=== PATIENT | male | born 1960 | race Caucasian/White ===

== ENCOUNTER 2017-03-20 16:32 | Emergency (ER) | payer OTHER ==
--- NOTE | 2017-03-20 18:10 | ER Document Report ---
ED General - General Chief Complaint: Toe Injury Stated Complaint: TOE PAIN Time Seen by Provider: 03/20/17 18:00 Notes: This is a 56-year-old male with a history of hypertension and seizure disorder who presents with toe pain. He states that he has had this toe problem for the past 3-4 months. Problem initially began with a toe injury in which he lifted the toenail from the nail bed. Since that time he has had pain and swelling and redness. He states that he has been too busy with work and that is why he has not been evaluated until now. No new symptoms today and he states that the appearance of the toe has been stable for the past 2 or 3 months. He specifically denies any fevers chills or systemic symptoms. TRAVEL OUTSIDE OF THE [place] IN LAST 30 DAYS: No - Related Data Allergies/Adverse Reactions: No Known Allergies Allergy (Verified 03/20/17 16:35) Past Medical History - Social History Smoking Status: Never Smoker Chew tobacco use (# tins/day): No Frequency of alcohol use: None Drug Abuse: None Family History: Reviewed & Not Pertinent Patient has suicidal ideation: No Patient has homicidal ideation: No - Past Medical History Cardiac Medical History: Reports: Hx Hypertension Denies: Hx Heart Attack Pulmonary Medical History: Denies: Hx Asthma Neurological Medical History: Reports: Hx Seizures - LAST ONE 15 YEARS AGO D/T HEAD INJURY [id number]?. Denies: Hx Cerebrovascular Accident Renal/ Medical History: Denies: Hx Peritoneal Dialysis GI Medical History: Denies: Hx Hepatitis, Hx Hiatal Hernia, Hx Ulcer Infectious Medical History: Denies: Hx Hepatitis Surgical Hx: Negative Past Surgical History: Reports: Hx Tonsillectomy. Denies: Hx Open Heart Surgery , Hx Pacemaker - Immunizations Hx Diphtheria, Pertussis, Tetanus Vaccination: Yes Review of Systems - Review of Systems Constitutional: No symptoms reported. denies: Chills, Fever EENT: No symptoms reported Cardiovascular: No symptoms reported Respiratory: No symptoms reported Gastrointestinal: No symptoms reported Musculoskeletal: See HPI Skin: See HPI Hematologic/Lymphatic: No symptoms reported Neurological/Psychological: No symptoms reported Physical Exam - Vital signs Vitals: Temp Pulse Resp BP Pulse Ox 97.7 F 74 18 160/83 H 96 03/20/17 16:35 03/20/17 16:35 03/20/17 16:35 03/20/17 16:35 03/20/17 16:35 - General General appearance: Appears well In distress: None - HEENT Head: Normocephalic, Atraumatic Eyes: Normal - Respiratory Respiratory status: No respiratory distress Breath sounds: Normal. No: Rales, Rhonchi, Wheezing - Cardiovascular Rhythm: Regular Heart sounds: Normal auscultation, S1 appreciated, S2 appreciated - Extremities Notes: 3rd toe R foot: diffuse erythema to toe with mild swelling. Majority of toenail has avulsed and there is some granulation tissue present. Sensation intact. No erthema extending past toe onto foot. Foot is warm with distal pulses intact. Course - Re-evaluation Re-evalutation: 03/20/17 21:03 Pt with obvious cellulitis to toe, but patient states this appearance has been stable for the past month or more. Will trial outpatient antibiotics and follow up with PCP and podiatry. Strict return precautions discussed, he feels well and is very comfortable with this plan. - Vital Signs Vital signs: Temp Pulse Resp BP Pulse Ox 97.7 F 78 18 141/93 H 96 03/20/17 16:35 03/20/17 18:25 03/20/17 18:25 03/20/17 18:25 03/20/17 18:25 Discharge - Discharge Clinical Impression: Cellulitis of toe of right foot Condition: Stable Disposition: HOME, SELF-CARE Additional Instructions: CELLULITIS: You have an infection of your skin and underlying soft tissues called cellulitis. This is due to bacteria, which can enter through any break in the skin, or even through an irritated hair follicle. Untreated, cellulitis will usually worsen. Antibiotics are required. Usually, warm packs or warm soaks, and elevation of the infected area are recommended. You should start getting better within 24 to 36 hours. Most infections respond quickly to the right medication. Follow-up care is important, however, to check for abscess (boil) formation, unsuspected foreign body, or resistant infection. If you develop fever, chills, or if the area of infection is becoming rapidly more swollen or painful, call the doctor at once. ANTIBIOTIC THERAPY: You have been given an antibiotic prescription. It's important that you take all the medication, unless instructed otherwise by your physician. Failure to complete the entire course can result in relapse of your condition. Common side effects of antibiotics include nausea, intestinal cramping, or diarrhea. Women may develop vaginal yeast infections, and babies can get yeast (thrush) in the mouth following the use of antibiotics. Contact your physician if you develop significant side effects from this medication. Allergy to this antibiotic can result in hives, wheezing, faintness, or itching. If symptoms of allergy occur, stop the medication and call the doctor. CLINDAMYCIN: You have been given a prescription for the antibiotic clindamycin. It is often prescribed for infections in the mouth, such as dental infections or abscesses, and for skin infections due to MRSA. It's important that you take all the medication, unless instructed otherwise by your physician. Failure to complete the entire course can result in relapse of your condition. Common side effects of antibiotics include nausea, intestinal cramping, or diarrhea. Women may develop vaginal yeast infections, and babies can get yeast (thrush) in the mouth following the use of antibiotics. Contact your physician if you develop significant side effects from this medication. Allergy to this antibiotic can result in hives, wheezing, faintness, or itching. If symptoms of allergy occur, stop the medication and call the doctor. FOLLOW-UP CARE: If you have been referred to a physician for follow-up care, call the physician s office for an appointment as you were instructed or within the next two days. If you experience worsening or a significant change in your symptoms, notify the physician immediately or return to the Emergency Department at any time for re-evaluation. Prescriptions: Clindamycin HCl 300 mg PO Q6H #40 capsule Mupirocin 22 gm TP BID #1 oint..gm. Referrals: FIDEL ATKINS DPM [ACTIVE STAFF] - 03/22/17
[2017-03-20] MEDS ORDERED: IBUPROFEN 800 MG TABLET PO ONE (18:14)
[2017-03-20 18:32] VITALS: BP 141/93
== END 2017-03-20 18:25 | disposition home or self-care (01) ==
LOC: ER 16:32
DX: S91.201A Unspecified open wound of right great toe with damage to nail, initial encounter (principal); L03.031 Cellulitis of right toe; X58.XXXA Exposure to other specified factors, initial encounter; I10 Essential (primary) hypertension
CPT/HCPCS: 99282

== ENCOUNTER 2019-10-30 12:30 | Inpatient (IN) | payer OTHER ==
--- NOTE | 2019-10-30 12:58 | ER Document Report ---
ED Medical Screen (RME) - General Chief Complaint: Shortness Of Breath Stated Complaint: DIFFICULTY BREATHING/WEAKNESS Time Seen by Provider: 10/30/19 12:49 Primary Care Provider: SELINA STEINER MD [Primary Care Provider] - Follow up as needed TRAVEL OUTSIDE OF THE [place] IN LAST 30 DAYS: No - HPI Notes: 10/30/19 12:56 Patient is a 59-year-old male who presents complaining of generalized weakness for the past several days, dizziness today, feeling short of breath during a dizziness episode today, and having URI symptoms for the past 2 and half weeks. Patient is currently on amoxicillin as well as Tessalon for his illness by his family doctor, but does not seem to be improving. He is urinating normally, but does have diarrhea. No fever, but has felt chills/sweats. Currently no dizziness at rest. I have treated and performed a rapid initial assessment of this patient. A comprehensive ED assessment and evaluation of the patient, analysis of test results and completion of medical decision making process will be conducted by additional ED providers. PHYSICAL EXAMINATION: GENERAL: Well-appearing, well-nourished and in no acute distress. A&Ox4. Answers questions appropriately. Heart: RRR Lungs: CTAB Neuro: Cranial nerves grossly intact. - Related Data Allergies/Adverse Reactions: No Known Allergies Allergy (Verified 03/20/17 16:35) Past Medical History - Past Medical History Cardiac Medical History: Reports: Hx Hypertension Denies: Hx Heart Attack Pulmonary Medical History: Denies: Hx Asthma Neurological Medical History: Reports: Hx Seizures - LAST ONE 15 YEARS AGO D/T HEAD INJURY [id number]?. Denies: Hx Cerebrovascular Accident Renal/ Medical History: Denies: Hx Peritoneal Dialysis GI Medical History: Denies: Hx Hepatitis, Hx Hiatal Hernia, Hx Ulcer Infectious Medical History: Denies: Hx Hepatitis Past Surgical History: Reports: Hx Tonsillectomy. Denies: Hx Open Heart Surgery, Hx Pacemaker - Immunizations Hx Diphtheria, Pertussis, Tetanus Vaccination: Yes Physical Exam - Vital signs Vitals: Temp Pulse Resp BP Pulse Ox 97.5 F 70 18 115/87 H 97 10/30/19 12:35 10/30/19 12:35 10/30/19 12:35 10/30/19 12:35 10/30/19 12:35 Course - Vital Signs Vital signs: Temp Pulse Resp BP Pulse Ox 97.5 F 70 18 115/87 H 97 10/30/19 12:35 10/30/19 12:35 10/30/19 12:35 10/30/19 12:35 10/30/19 12:35 Doctor's Discharge - Discharge Referrals: SELINA STEINER MD [Primary Care Provider] - Follow up as needed
[2019-10-30] MEDS ORDERED: DILTIAZEM HCL INJ 25 MG/5 ML VIAL ONE (13:13)
[2019-10-30] MEDS ORDERED: DILTIAZEM HCL INJ 25 MG/5 ML VIAL IV ONE (13:18)
[2019-10-30] MEDS ORDERED: DILTIAZEM HCL/D5W 125 MG/125 ML RTUINJ IV ONE (13:24)
[2019-10-30 13:27] LABS: ABSOLUTE BASOPHILS # (AUTO) 0.1 10^3/uL (0.0-0.2); ABSOLUTE EOSINOPHILS # (AUTO) 0.2 10^3/uL (0.0-0.6); ABSOLUTE LYMPHOCYTES (AUTO) 2.3 10^3/uL (0.5-4.7); ABSOLUTE NEUT (AUTO) 9.5 10^3/uL (1.7-8.2); EOSINOPHILS % (AUTO) 1.2 % (0-6); HEMATOCRIT 46.5 % (37.9-51.0); HEMOGLOBIN 16.5 g/dL (13.5-17.0); LYMPHOCYTES % (AUTO) 17.4 % (13-45); MEAN CORPUSCULAR HEMOGLOBIN 32.1 pg (27.0-33.4); MEAN CORPUSCULAR HGB CONC 35.4 g/dL (32.0-36.0); MEAN CORPUSCULAR VOLUME 91 fl (80-97); MONOCYTES % (AUTO) 7.8 % (3-13); PLATELET COUNT 399 10^3/uL (150-450); RED BLOOD COUNT 5.13 10^6/uL (4.35-5.55); RED CELL DISTRIBUTION WIDTH 12.4 % (11.5-14.0); SEGMENTED NEUTROPHILS % (AUTO) 72.6 % (42-78); TOTAL CELLS COUNTED % (AUTO) 100 %; WHITE BLOOD COUNT 13.1 10^3/uL (4.0-10.5)
[2019-10-30] MEDS: DILTIAZEM HCL/D5W 125 MG/125 ML RTUINJ IV PRN ×2 (13:27→21:48)
--- NOTE | 2019-10-30 13:53 | RADIOLOGY REPORT (SQ) ---
EXAM DESCRIPTION: CHEST SINGLE VIEW COMPLETED DATE/TIME: 10/30/2019 1:41 pm REASON FOR STUDY: SOB, dizziness COMPARISON: None. EXAM PARAMETERS: NUMBER OF VIEWS: One view. TECHNIQUE: Single frontal radiographic view of the chest acquired. RADIATION DOSE: NA LIMITATIONS: None. FINDINGS: LUNGS AND PLEURA: Is ill-defined opacification in the left base laterally. There is sligh t haziness in the right upper lobe laterally. MEDIASTINUM AND HILAR STRUCTURES: No masses. Contour normal. HEART AND VASCULAR STRUCTURES: Heart normal in size. Normal vasculature. BONES: No acute findings. HARDWARE: None in the chest. OTHER: No other significant finding. IMPRESSION: Cannot exclude a limited left lower lobe or right upper lobe pneumonia. TECHNICAL DOCUMENTATION: JOB ID: [id number] [employer]- All Rights Reserved Reading location - IP/workstation name: [email or web address]
[2019-10-30 14:09] LABS: ALBUMIN 3.9 g/dL (3.5-5.0); ALKALINE PHOSPHATASE 109 U/L (38-126); ANION GAP 14 (5-19); ASPARTATE AMINO TRANSFERASE 53 U/L (17-59); BILIRUBIN,DIRECT 0.5 mg/dL (0.0-0.4); BILIRUBIN,TOTAL 0.6 mg/dL (0.2-1.3); BLOOD UREA NITROGEN 15 mg/dL (7-20); CALCIUM 9.5 mg/dL (8.4-10.2); CARBON DIOXIDE 25 mmol/L (22-30); CHLORIDE 101 mmol/L (98-107); GLUCOSE 113 mg/dL (75-110); POTASSIUM 4.4 mmol/L (3.6-5.0); TOTAL PROTEIN 8.2 g/dL (6.3-8.2)
[2019-10-30 14:22] LABS: NT PRO BNP 730 pg/mL (<125)
[2019-10-30 14:25] LABS: TROPONIN I < 0.012 ng/mL
--- NOTE | 2019-10-30 14:25 | ER Document Report ---
ED General - General Chief Complaint: Shortness Of Breath Stated Complaint: DIFFICULTY BREATHING/WEAKNESS Time Seen by Provider: 10/30/19 12:49 Mode of Arrival: Ambulatory Information source: Patient, Relative, Dr. Brush, [facility] Records Notes: Patient is a 59-year-old male with hypertension presents complaining of generalized weakness, shortness of breath for the past several days, dizziness t adonay, feeling short of breath during a dizziness episode today, and having URI symptoms for the past 2 and half weeks. Reports productive cough. Patient is currently on amoxicillin as well as Tessalon for his illness by his family doctor, but does not seem to be improving. He is urinating normally, but does have diarrhea. No fever, but has felt chills/sweats. Currently no dizziness at rest. Patient denies palpitations, chest pain. TRAVEL OUTSIDE OF THE [place] IN LAST 30 DAYS: No - HPI Onset: Other Onset/Duration: Intermittent Quality of pain: No pain Severity: None Pain Level: Denies Associated symptoms: Body/muscle aches, Productive cough, Fever, Shortness of breath, Weakness. denies: Chest pain, Diarrhea, Nausea, Vomiting Exacerbated by: Supine Relieved by: Denies Similar symptoms previously: Yes Recently seen / treated by doctor: Yes - Related Data Allergies/Adverse Reactions: No Known Allergies Allergy (Verified 03/20/17 16:35) Past Medical History - General Information source: Patient, DrMichael Brush, [facility] Records - Social History Smoking Status: Never Smoker Frequency of alcohol use: None Drug Abuse: None Lives with: Family, Spouse/Significant other Family History: Reviewed & Not Pertinent Patient has suicidal ideation: No Patient has homicidal ideation: No - Past Medical History Cardiac Medical History: Reports: Hx Hypertension Denies: Hx Heart Attack Pulmonary Medical History: Denies: Hx Asthma Neurological Medical History: Reports: Hx Seizures - LAST ONE 15 YEARS AGO D/T HEAD INJURY [id number]?. Denies: Hx Cerebrovascular Accident Renal/ Medical History: Denies: Hx Peritoneal Dialysis GI Medical History: Denies: Hx Hepatitis, Hx Hiatal Hernia, Hx Ulcer Infectious Medical History: Denies: Hx Hepatitis Past Surgical History: Reports: Hx Tonsillectomy. Denies: Hx Open Heart Merida rgery, Hx Pacemaker - Immunizations Hx Diphtheria, Pertussis, Tetanus Vaccination: Yes Review of Systems - Review of Systems Notes: REVIEW OF SYSTEMS: CONSTITUTIONAL : + fever, chills, or sweats. + recent illness. Denies weight loss, recent hospitalizations. EENT: Denies visual changes, eye pain. Denies sore throat, oral lesions, difficulty swallowing. CARDIOVASCULAR: Denies chest pain. Denies palpitations. Denies lower extremity edema. RESPIRATORY: + cough. + shortness of breath, wheezing. GASTROINTESTINAL: Denies abdominal pain or distention. Denies nausea, vomiting, or diarrhea. Denies blood in vomitus, stools, or per rectum. Denies black, tarry stools. Denies constipation. GENITOURINARY: Denies difficulty urinating, painful urination, frequency, blood in urine, testicular pain or penile discharge. MUSCULOSKELETAL: Denies back or neck pain or stiffness. Denies joint pain or swelling. SKIN: Denies rash, lesions or sores. HEMATOLOGIC : Denies easy bruising or bleeding. LYMPHATIC: Denies swollen glands. NEUROLOGICAL: Denies confusion or altered mental status. Denies loss of consciousness. Denies dizziness or lightheadedness. Denies headache. Denies weakness or paralysis. Denies problems difficulty with ambulation, slurred speech. Denies sensory loss, numbness, or tingling. Denies seizures. PSYCHIATRIC: Denies anxiety or stress. Denies depression, suicidal ideation, or Physical Exam - Vital signs Vitals: Temp Pulse Resp BP Pulse Ox 97.5 F 70 18 115/87 H 97 10/30/19 12:35 10/30/19 12:35 10/30/19 12:35 10/30/19 12:35 10/30/19 12:35 - Notes Notes: PHYSICAL EXAMINATION: GENERAL: Well-appearing, well-nourished and in no acute distress. HEAD: Atraumatic, normocephalic. EYES: Pupils equal round and reactive to light, extraocular movements intact, sclera anicteric, conjunctiva are normal. ENT: Nares patent, oropharynx clear without exudates. Moist mucous membranes. NECK: Normal range of motion, supple without lymphadenopathy LUNGS: Bilateral rhonchi, no hypoxia, tachypnea, accessory muscle use. HEART: Tachycardic, regular rhythm, no murmurs. ABDOMEN: Soft, nontender, nondistended abdomen. No guarding, no rebound. No masses appreciated. Musculoskeletal: Normal range of motion, no pitting or edema. No cyanosis. NEUROLOGICAL: Cranial nerves grossly intact. Normal speech, normal gait. Normal sensory, motor exams PSYCH: Normal mood, normal affect. SKIN: Warm, Dry, normal turgor, no rashes or lesions noted. Course - Re-evaluation Re-evalutation: Laboratory 10/30/19 10/30/19 10/30/19 13:20 13:20 13:20 WBC 13.1 H RBC 5.13 Hgb 16.5 Hct 46.5 MCV 91 MCH 32.1 MCHC 35.4 RDW 12.4 Plt Count 399 Lymph % (Auto) 17.4 [place] % (Auto) 7.8 Eos % (Auto) 1.2 Baso % (Auto) 1.0 Absolute Neuts (auto) 9.5 H Absolute Lymphs (auto) 2.3 Absolute Monos (auto) 1.0 Absolute Eos (auto) 0.2 Absolute Basos (auto) 0.1 Seg Neutrophils % 72.6 Sodium 140.1 Potassium 4.4 Chloride 101 Carbon Dioxide 25 Anion Gap 14 BUN 15 Creatinine 0.86 Est GFR ( Amer) > 60 Est GFR (MDRD) Non-Af > 60 Glucose 113 H Calcium 9.5 Magnesium 2.1 Total Bilirubin 0.6 Direct Bilirubin 0.5 H Neonat Total Bilirubin Not Reportable Neonat Direct Bilirubin Not Reportable Neonat Indirect Bili Not Reportable AST 53 ALT 103 Alkaline Phosphatase 109 Troponin I < 0.012 NT-Pro-B Natriuret Pep 730 H Total Protein 8.2 Albumin 3.9 Chest X-Ray 10/30/19 12:56 IMPRESSION: Cannot exclude a limited left lower lobe or right upper lobe pneumonia. Temp Pulse Resp BP Pulse Ox 97.5 F 70 18 115/87 H 95 10/30/19 12:35 10/30/19 12:35 10/30/19 12:35 10/30/19 12:35 10/30/19 13:50 10/30/19 14:[address] Crowley the patient's marine erector who states that he does not have a record of the patient having atrial fibrillation. Explained that patient did receive a bolus of Cardizem and is currently maxed out on a Cardizem drip with poor rate control. He advises Lopressor and a stat echocardiogram. Chest x-ray consistent with pneumonia. 10/30/19 15:06 Upon arrival patient EKG showed atrial fibrillation with a heart rate of 188. He did receive 20 mg Cardizem bolus and is now on a Cardizem drip with a heart rate fluctuating between 105 and 120 and a blood pressure of 132/97. 10/30/19 16:48 Front Loader Residential Driver consulted after CTA revealed multiple pulmonary emboli, right heart strain. I did speak with Dr. Crowley requesting that he read the echocardiogram as the water aerobics instructor feels that the patient could be a TPA candidate. 10/30/19 19:04 Dr. Crowley was available to talk to the water aerobics instructor Dr. Hi. They have decided to use weight-based Lovenox for the patient instead of TPA. Patient made aware of CT finding and is agreeable to admission to the ICU. - Vital Signs Vital signs: Temp Pulse Resp BP Pulse Ox 97.8 F 87 22 H 129/80 H 95 10/30/19 17:53 10/30/19 17:53 10/30/19 18:00 10/30/19 17:53 10/30/19 18:00 - Laboratory Result Diagrams: 10/30/19 13:20 10/30/19 13:20 Laboratory results interpreted by me: 10/30/19 10/30/19 10/30/19 13:20 13:20 13:20 WBC 13.1 H Absolute Neuts (auto) 9.5 H D-Dimer Glucose 113 H Direct Bilirubin 0.5 H NT-Pro-B Natriuret Pep 730 H 10/30/19 13:20 WBC Absolute Neuts (auto) D-Dimer 4.82 H Glucose Direct Bilirubin NT-Pro-B Natriuret Pep - Diagnostic Test Radiology reviewed: Image reviewed, Reports reviewed - EKG Interpretation by Me Rate: Tachycardia Rhythm: A.Fib - RVR, heart rate 188 Critical Care Note - Critical Care Note Total time excluding time spent on procedures (mins): 35 - Minutes of critical care time spent in direct contact evaluating and reevaluating the patient, treating symptoms, reviewing labs and studies and speaking with family and consultants excluding any procedures Discharge - Discharge Clinical Impression: New onset atrial fibrillation, Cough, Pulmonary embolism and infarction Dyspnea Qualifiers: Dyspnea type: shortness of breath Qualified Code(s): R06.02 - Shortness of breath Condition: Good Disposition: ADMITTED INPATIENT Admitting Provider: Sussy (Front Loader Residential Driver) Unit Admitted: ICU
[2019-10-30] MEDS ORDERED: CEFTRIAXONE 1 GM/D5W RTU 1 GM/50 ML RTUPB IV ONE (14:27)
[2019-10-30] MEDS ORDERED: DOXYCYCLINE HYCLATE 100 MG TABLET PO ONE (14:27)
[2019-10-30 15:03] LABS: FREE T4 (FREE THYROXINE) 1.26 ng/dL (0.78-2.19)
[2019-10-30] MEDS ORDERED: METOPROLOL TARTRATE PF/INJ 5 MG/5 ML SDV IV ONE (15:12)
[2019-10-30 15:17] LABS: THYROID STIMULATING HORMONE 1.02 uIU/mL (0.47-4.68)
[2019-10-30 15:21] LABS: FREE T3 3.16 pg/mL (2.77-5.27)
--- NOTE | 2019-10-30 16:01 | EKG REPORT ---
SEVERITY:- ABNORMAL ECG - ATRIAL FIBRILLATION WITH RAPID V-RATE REPOLARIZATION ABNORMALITY, PROB RATE RELATED : Confirmed by: Miky Nj MD 30-Oct-2019 16:01:07
--- NOTE | 2019-10-30 16:17 | RADIOLOGY REPORT (SQ) ---
EXAM DESCRIPTION: CTA CHEST COMPLETED DATE/TIME: 10/30/2019 3:43 pm REASON FOR STUDY: sob COMPARISON: None. TECHNIQUE: CT scan of the chest performed using helical scanning technique with dynamic intravenous contrast injection. Images reviewed with lung, soft tissue and bone windows. Reconstructed coronal and sagittal MPR images reviewed. Additional 3 dimensional post-processing performed to develop Maximal Intensity Projection images (NM P). All images stored on PACS. All CT scanners at this facility use dose modulation, iterative reconstruction, and/or weight based d osing when appropriate to reduce radiation dose to as low as reasonably achievable (ALARA). [facility]: Dose Right [facility]: CareDose [facility]: Dose Right [facility]: Teradose 4D [facility]: ClauseMatch CONTRAST TYPE AND DOSE: Contrast/concentration: Isovue 350.00 mg/ml; Total Contrast Delivered: 70.0 ml; Total Saline Delivered: 54.7 ml Contrast bolus optimized for the pulmonary arteries. RENAL FUNCTION: Creatinine 0.86 milligrams/deciliter. RADIATION DOSE: CT Rad equipment meets quality standard of care and radiation dose reduction techniq ues were employed. CTDIvol: 19.8 - 28.8 mGy. DLP: 1123 mGy-cm. LIMITATIONS: None. FINDINGS: LUNGS AND PLEURA: Evaluation is limited due to the absence of intravenous contrast. The a reas of patchy consolidation in the right upper lobe (image 44 of series 4) and left upper lobe (imag e 47 of series 4) with air bronchograms are nonspecific. The 12 x 10 mm spiculated nodular opacity i n the medial segment of the right middle lobe (image 73 of series 4) and the subpleural opacities in the right lower lobes and lingula could represent atelectasis. There is no pleural effusion or pneum othorax. AORTA AND GREAT VESSELS: Variant 2 vessel arch. There is no thoracic aortic aneurysm or dissection. HEART: The heart is enlarged. The interventricular septum is flattened and the ratio of the right ve ntricle to the left ventricle is greater than 1:1. There is no reflux of contrast into the IVC or he patic veins. PULMONARY ARTERIES: There are filling defects within the right and left pulmonary arteries and within the segmental branches to the right upper, right middle, right lower, left upper and left lower lobe s. HILAR AND MEDIASTINAL STRUCTURES: No enlarged mediastinal hilar lymph nodes. HARDWARE: None in the chest. UPPER ABDOMEN: There is a cluster of portocaval and wendy hepatis lymph nodes that measure up to 12 m m in short axis diameter. THYROID AND OTHER SOFT TISSUES: No masses or adenopathy. BONES: No acute findings. 3D MIPS: Confirm above findings. OTHER: No other finding. IMPRESSION: 1. Extensive bilateral pulmonary emboli with findings of right ventricular strain. 2. Areas of patchy consolidation in the right upper lobe (image 44 of series 4) and left upper lobe (image 47 of series 4) could represent pulmonary infarcts or multifocal pneumonia. Clinical correlat ion is recommend. COMMENT: Quality ID # [id number]: Final reports with documentation of one or more dose reduction techniques (e.g., Automated exposure control, adjustment of the mA and/or kV according to patient size, use of iterative reconstruction technique) TECHNICAL DOCUMENTATION: JOB ID: [id number] [employer]- All Rights Reserved Reading location - IP/workstation name: [email or web address]
--- NOTE | 2019-10-30 17:09 | XCELERA REPORT ---
[address] [address] Transthoracic Echocardiogram Report Name: MARC CAGE Deloris JR Age: 59 yrs Gender: Male : 1960 Patient Status: Emergency Patient Location: ER Study Date: 10/30/2019 02:53 PM Height: 69 in Weight: 226 lb BSA: 2.2 m2 Procedure: A complete two-dimensional transthoracic echocardiogram was performed (2D, M-mode, spectral and color flow Doppler). The study was technically difficult with many images being suboptimal in quality. Reason For Study: New onset atrial fibrillation Ordering Physician: SHA LAND Performed By: Eneida Melchor Interpretation Summary The left ventricular ejection fraction is within normal limits. The right ventricle is mildly dilated. The right ventricular systolic function is normal. There is borderline right ventricular hypertrophy. There is borderline concentric left ventricular hypertrophy. The left ventricle is grossly normal size. LV diastolic function could not be adequately assessed due to atrial fibrilation. The right atrium is normal in size The left atrial size is normal. There is a trace amount of mitral regurgitation There is no mitral valve stenosis. No aortic regurgitation is present. There is no aortic valve stenosis There is a trace or physiologic amount of tricuspid regurgitation Tricuspid regurgitation jet envelope not well defined to measure RV systolic pressure accurately. The aortic root is not well visualized. IVC not well visualised but does seem small. MMode/2D Measurements & Calculations RVDd: 2.3 cm LVIDd: 3.6 cm FS: 21.9 % Ao root diam: 3.0 cm IVSd: 1.1 cm LVIDs: 2.8 cm EDV(Teich): 54.8 ml Ao root area: 7.0 cm2 LVPWd: 1.2 cm ESV(Teich): 30.1 ml EF(Teich): 45.1 % Doppler Measurements & Calculations MV E max topher: MV dec slope: Ao V2 max: LV V1 max P.2 cm/sec 453.2 cm/sec2 135.6 cm/sec 4.5 mmHg MV dec time: 0.16 sec Ao max P.4 mmHgLV V1 max: 106.2 cm/sec PA V2 max: PI end-d topher: TR max topher: 86.8 cm/sec 147.7 cm/sec 227.2 cm/sec PA max P.0 mmHgPI max topher: TR max P.3 cm/sec 20.9 mmHg PI max P.4 mmHg PI dec slope: 110.1 cm/sec2 Left Ventricle The left ventricle is grossly normal size. There is borderline concentric left ventricular hypertrophy. The left ventricular ejection fraction is within normal limits. LV diastolic function could not be adequately assessed due to atrial fibrilation. Regional wall motion abnormalities cannot be excluded due to limited visualization. Right Ventricle The right ventricle is mildly dilated. There is borderline right ventricular hypertrophy. The right ventricular systolic function is normal. Atria The right atrium is normal in size. The left atrial size is normal. Interarterial septum not well visualized and not well dopplered. Cannot comment on ASD/PFO presence. Mitral Valve The mitral valve is grossly normal. There is no mitral valve stenosis. There is a trace amount of mitral regurgitation. Aortic Valve The aortic valve is not well visualized secondary to technical limitations. There is no aortic valve stenosis. No aortic regurgitation is present. Tricuspid Valve The tricuspid valve is not well visualized, but is grossly normal. There is no tricuspid stenosis. There is a trace or physiologic amount of tricuspid regurgitation. Tricuspid regurgitation jet envelope not well defined to measure RV systolic pressure accurately. Pulmonic Valve The pulmonic valve is not well visualized. Great Vessels The aortic root is not well visualized. The inferior vena cava was not well visualized. but does seem small. Effusions Minimal pericardial effusion. : SHA LAND Shyamal
[2019-10-30] MEDS ORDERED: IPRATROPIUM/ALBUTEROL 0.5-2.5 MG/3 ML AMPUL NEB PRN (17:15)
[2019-10-30] MEDS ORDERED: ENOXAPARIN SODIUM INJ 100 MG/1 ML DISP.SYRIN SUBCUT SCH (17:15)
[2019-10-30] MEDS ORDERED: ACETAMINOPHEN 325 MG TABLET PO PRN (17:15)
[2019-10-30] MEDS ORDERED: NORMAL SALINE 1000 ML 1,000 ML IV PRN (17:15)
[2019-10-30] MEDS ORDERED: OXYCODONE-ACETAMINOPHEN 5-325 MG TABLET PO PRN (17:15)
[2019-10-30] MEDS ORDERED: INFLUENZA QUAD (6MOS+) 2019-20 VAC 0.5 ML SYR IM ONE (17:58)
[2019-10-30] MEDS: ENOXAPARIN SODIUM INJ 100 MG/1 ML DISP.SYRIN SUBCUT SCH (18:25)
--- NOTE | 2019-10-30 18:37 | CRITICAL CARE ADMISSION REPORT ---
HPI Date:: 10/30/19 Time:: 16:00 Reason for ICU Reason:: Multiple PEs and pulmonary infarction. R heart strain and rapid afib. HPI: This patient is a 59 yo man who began having shortness of breath this AM. He was feeling and looking 'bad' according to and he agreed to come to the ED. While there he was noted to be in new atrial fibrillation up to 180. No drop in BP. Treated effectively with cardizem. Now in SR. He was noted to have a d-dimer of 4.8 and a resultant CTA showed multiple PEs and infarctions mostly in both upper lobes. He had an echocardiogram showing a good RV an LV EF with some R heart strain. The decision was made based on his stable clinical status to treat with lovenox and watch overnight in the ICU. Should he become unstable he will get thrombolytics. If he remains stable he will be downgraded in AM. Interestingly he has a spiculated lesion in his lung that is new. He has never smoked. 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 Their smoking status is not known. This will obviously need follow up when more stable. I believe this has been going on for more than today as he says he has been dizzy 'off and on' for several days and has had a cough for more than a week. He has had a cramp in his L calf of uncertain significance now resolved. History obtained from:: Patient and - Diagnosis/Plan (1) Cough Is this a current diagnosis for this admission?: Yes Plan: May be unrelated or a symptom of PE. Treat with lovenox. (2) Dyspnea Qualifiers: Dyspnea type: shortness of breath Qualified Code(s): R06.02 - Shortness of breath; R06.00 - Dyspnea, unspecified; R06.01 - Orthopnea Is this a current diagnosis for this admission?: Yes Plan: A symptom of PE and infarction. (3) New onset atrial fibrillation Is this a current diagnosis for this admission?: Yes Plan: Now in SR. Will convert to Multaq per Dr. Crowley and d/c ashwin. (4) Pulmonary embolism and infarction Is this a current diagnosis for this admission?: Yes Plan: Lovenox 1mg/kg q12h and convert to eliquis. (5) Lung abnormality Is this a current diagnosis for this admission?: Yes Plan: He is a lifelong non-smoker but his occupational exposure needs follow up. - . Plan Summary: Observe overnight for any cardiovascular instability and downgrade in AM if stable. Lovenox 100mg q12H and repeat CT when stable to assess status of lung lesion. Past Medical History Cardiac Medical History: Reports: Hypertension Denies: Myocardial Infarction Pulmonary Medical History: Denies: Asthma Neurological Medical History: Reports: Seizures - LAST ONE 15 YEARS AGO D/T HEAD INJURY [id number]? GI Medical History: Denies: Hepatitis, Hiatal Hernia Hematology: Denies: Anemia, Sickle Cell Disease Past Surgical History Past Surgical History: Reports: Tonsillectomy Denies: Pacemaker Social/Family History - Social History Lives with: Family, Spouse/Significant other Smoking Status: Never Smoker - Medication/Allergies Allergies/Adverse Reactions: No Known Allergies Allergy (Verified 03/20/17 16:35) Review of Systems Constitutional: PRESENT: as per HPI. ABSENT: chills, fever(s), headache(s), weight gain, weight loss Eyes: ABSENT: visual disturbances Ears: ABSENT: hearing changes Cardiovascular: PRESENT: chest pain - Only occassionaly Respiratory: PRESENT: cough, dyspnea, sputum Gastrointestinal: ABSENT: abdominal pain, constipation, diarrhea, hematemesis, hematochezia, nausea, vomiting Genitourinary: ABSENT: dysuria, hematuria Musculoskeletal: ABSENT: joint swelling Integumentary: ABSENT: rash, wounds Neurological: ABSENT: abnormal gait, abnormal speech, confusion, dizziness, focal weakness, syncope Psychiatric: ABSENT: anxiety, depression, homidical ideation, suicidal ideation Endocrine: ABSENT: cold intolerance, heat intolerance, polydipsia, polyuria Hematologic/Lymphatic: ABSENT: easy bleeding, easy bruising Physical Exam Vital Signs: Temp Pulse Resp BP Pulse Ox 97.5 F 70 17 126/84 H 93 10/30/19 12:35 10/30/19 12:35 10/30/19 17:20 10/30/19 17:20 10/30/19 17:20 Intake & Output 10/29/19 10/30/19 10/31/19 06:59 06:59 06:59 Intake Total 7 Balance 7 Weight 102.6 kg Weight/Height Weight 102.6 kg Height 5 ft 9 in General appearance: PRESENT: no acute distress, well-developed, well-nourished Head exam: PRESENT: atraumatic, normocephalic Eye exam: PRESENT: conjunctiva pink, EOMI, PERRLA. ABSENT: scleral icterus Ear exam: PRESENT: normal external ear exam Mouth exam: PRESENT: moist, tongue midline Neck exam: ABSENT: carotid bruit, JVD, lymphadenopathy, thyromegaly Respiratory exam: PRESENT: rhonchi - Faint but bilateral. Dry. Cardiovascular exam: PRESENT: RRR. ABSENT: diastolic murmur, rubs, systolic murmur Pulses: PRESENT: normal dorsalis pedis pul Vascular exam: PRESENT: normal capillary refill GI/Abdominal exam: PRESENT: normal bowel sounds, soft. ABSENT: distended, guarding, mass, organolmegaly, rebound, tenderness Rectal exam: PRESENT: deferred Extremities exam: PRESENT: full ROM, other - No calf pain tightness or swelling.. ABSENT: calf tenderness, clubbing, pedal edema Musculoskeletal exam: PRESENT: full ROM, normal inspection Neurological exam: PRESENT: alert, awake, oriented to person, oriented to place, oriented to time, oriented to situation, CN II-XII grossly intact. ABSENT: motor sensory deficit Psychiatric exam: PRESENT: appropriate affect, normal mood. ABSENT: homicidal ideation, suicidal ideation Skin exam: PRESENT: dry, intact, warm. ABSENT: cyanosis, rash Laboratory/Radiographs Laboratory Results: 10/30/19 13:20 10/30/19 13:20 10/30/19 10/30/19 10/30/19 13:20 13:20 13:20 WBC 13.1 H RBC 5.13 Hgb 16.5 Hct 46.5 MCV 91 MCH 32.1 MCHC 35.4 RDW 12.4 Plt Count 399 Seg Neutrophils % 72.6 Sodium 140.1 Potassium 4.4 Chloride 101 Carbon Dioxide 25 Anion Gap 14 BUN 15 Creatinine 0.86 Est GFR ( Amer) > 60 Glucose 113 H Lactic Acid Calcium 9.5 Magnesium 2.1 Total Bilirubin 0.6 AST 53 Alkaline Phosphatase 109 Total Protein 8.2 Albumin 3.9 TSH 1.02 Free T4 1.26 Free T3 pg/mL 3.16 10/30/19 14:36 WBC RBC Hgb Hct MCV MCH MCHC RDW Plt Count Seg Neutrophils % Sodium Potassium Chloride Carbon Dioxide Anion Gap BUN Creatinine Est GFR ( Amer) Glucose Lactic Acid 1.9 Calcium Magnesium Total Bilirubin AST Alkaline Phosphatase Total Protein Albumin TSH Free T4 Free T3 pg/mL 10/30/19 13:20 Troponin I < 0.012 NT-Pro-B Natriuret Pep 730 H Impressions: Chest X-Ray 10/30/19 12:56 IMPRESSION: Cannot exclude a limited left lower lobe or right upper lobe pneumonia. Chest/Abdomen CTA 10/30/19 14:10 IMPRESSION: 1. Extensive bilateral pulmonary emboli with findings of right ventricular strain. 2. Areas of patchy consolidation in the right upper lobe (image 44 of series 4) and left upper lobe (image 47 of series 4) could represent pulmonary infarcts or multifocal pneumonia. Clinical correlation is recommend. All labs, radiographs, diagnostic studies and EKGs were personally reviewed: Yes In addition, reports of radiographic and diagnostic studies were read: Yes Critical Time Critical Time (minutes): 40 -: The care of a critically ill patient is dynamic. This note represents a static moment in the admission process. Orders and treatments may be given simultaneously and urgently, and time is not business center representative of the treatment process. This patient requires Critical Care secondary to life threatening organ or limb dysfunction. Without Critical Care services, the patient is at risk for increased mortality and morbidity.
--- NOTE | 2019-10-30 18:44 | PDOC PROGRESS REPORT ---
Subjective Progress Note for:: 10/30/19 Subjective:: Patient known to me from before as he was seen in the office. Patient denied any previous heart problem. He claims that about a week ago his left leg had some pain and discomfort. However he did not pay much attention. Subsequently he started having coughing spells. He did go to urgent care center and got treated for this. This morning, patient felt very weak and tired and was near syncopal therefore he came to the emergency room. He was noted to be in atrial fibrillation with rapid ventricular response. I was given a call mainly regarding treatment of atrial fibrillation. Review of records shows that we have no record of him having him ever having atrial fibrillation. A decision was made to admit him for new onset atrial fibrillation however subsequently he was noted to have multiple pulmonary embolism. A stat echo was performed which was reviewed by me. It did show some RV enlargement. However LV EF and RVEF were noted to be normal. IVC was felt to be on a small in size. Patient was admitted and I was asked to follow along for atrial fibrillation. Reason For Visit: MULTIPLE PES, PULMONDARY INFARCTIONS. RAPID AFIB. Physical Exam Vital Signs: Temp Pulse Resp BP Pulse Ox 97.8 F 87 22 H 129/80 H 95 10/30/19 17:53 10/30/19 17:53 10/30/19 18:00 10/30/19 17:53 10/30/19 18:00 Intake & Output 10/29/19 10/30/19 10/31/19 06:59 06:59 06:59 Intake Total 7 Balance 7 Weight 109.3 kg Exam: GENERAL: well-nourished and in no acute distress. Alert and oriented x3 HEAD: Atraumatic, normocephalic. EYES: LAURYN, sclera anicteric, conjunctiva are normal. ENT: Moist mucous membranes. No oral ulcerations or bleeding gums noted. No obvious ear, nose or throat abnormalities noted. NECK: supple without lymphadenopathy. Trachea is central. No cervical or axillary lymphadenopathy noted. Carotids are 2+, JVD WNL LUNGS: Breath sounds clear bilaterally. No wheezes rales or rhonchi noted. No significant dullness noted on percussion. CHEST: Palpation of the chest wall shows no significant chest wall tenderness. HEART: [place] [employer], No PSH, 1/6 SANDRA aortic area, 1/6 lorenzana systolic murmur mitral area, no rubs, no gallops. ABDOMEN: Soft, no significant tenderness appreciated, normoactive bowel sounds. No guarding, no rebound. No rigidity noted . No masses appreciated. EXTREMITIES: Pedal pulses are 1-2+, no calf tenderness noted. No clubbing or cyanosis. 1 Plus bilateral pedal edema noted NEUROLOGICAL: Focused neurological exam showed no significant neurologic deficit. Normal speech, no focal weakness appreciated. PSYCH: Normal mood, normal affect. Judgment and insight within normal limits. SKIN: No significant ecchymosis, skin is noted to be warm. MUSCULOSKELETAL EXAM: No significant acute joint swelling noted. Results Laboratory Results: 10/30/19 13:20 10/30/19 13:20 10/30/19 10/30/19 10/30/19 13:20 13:20 13:20 WBC 13.1 H RBC 5.13 Hgb 16.5 Hct 46.5 MCV 91 MCH 32.1 MCHC 35.4 RDW 12.4 Plt Count 399 Seg Neutrophils % 72.6 Sodium 140.1 Potassium 4.4 Chloride 101 Carbon Dioxide 25 Anion Gap 14 BUN 15 Creatinine 0.86 Est GFR ( Amer) > 60 Glucose 113 H Lactic Acid Calcium 9.5 Magnesium 2.1 Total Bilirubin 0.6 AST 53 Alkaline Phosphatase 109 Total Protein 8.2 Albumin 3.9 TSH 1.02 Free T4 1.26 Free T3 pg/mL 3.16 10/30/19 14:36 WBC RBC Hgb Hct MCV MCH MCHC RDW Plt Count Seg Neutrophils % Sodium Potassium Chloride Carbon Dioxide Anion Gap BUN Creatinine Est GFR ( Amer) Glucose Lactic Acid 1.9 Calcium Magnesium Total Bilirubin AST Alkaline Phosphatase Total Protein Albumin TSH Free T4 Free T3 pg/mL 10/30/19 13:20 Troponin I < 0.012 NT-Pro-B Natriuret Pep 730 H EKG Comments: Atrial fibrillation with rapid ventricular response. Subsequently at around 6 PM he was noted to be in sinus rhythm. Impressions: Chest X-Ray 10/30/19 12:56 IMPRESSION: Cannot exclude a limited left lower lobe or right upper lobe pneumonia. Chest/Abdomen CTA 10/30/19 14:10 IMPRESSION: 1. Extensive bilateral pulmonary emboli with findings of right ventricular strain. 2. Areas of patchy consolidation in the right upper lobe (image 44 of series 4) and left upper lobe (image 47 of series 4) could represent pulmonary infarcts or multifocal pneumonia. Clinical correlation is recommend. Assessment & Plan - Diagnosis (1) Lung abnormality Is this a current diagnosis for this admission?: Yes (2) New onset atrial fibrillation Is this a current diagnosis for this admission?: Yes (3) Pulmonary embolism and infarction Is this a current diagnosis for this admission?: Yes - Notes Notes: Pulmonary embolism. Possibly related to obesity, possible malignancy with spiculated lesion being noted in the lungs. At this point recommend Lovenox with switch over to newer oral anticoagulants. Patient can follow-up with me after that. Atrial fibrillation: Possibly precipitated by pulmonary embolism. Patient does have risk factors for atrial fibrillation in way of being obese and having possible sleep apnea. Anyway chronic anticoagulation for pulmonary embolism should cover this in the meantime. I have ordered multaq 400 mg p.o. twice daily. Aim would be to continue it for just for a month. Obesity: Patient will benefit from weight loss. Spiculated lesion in the lung. Patient may benefit from further evaluation with repeat CT scan in about 6 weeks. However it may be worthwhile to see pulmonary evaluation. - Time Time with patient: Greater than 35 minutes Medications reviewed and adjusted accordingly: Yes
[2019-10-30 19:17] LABS: APPEARANCE,URINE CLEAR; BILIRUBIN,URINE NEGATIVE (NEGATIVE); COLOR,URINE YELLOW; GLUCOSE, URINE NEGATIVE (NEGATIVE); KETONES,URINE NEGATIVE (NEGATIVE); LEUKOCYTE ESTERASE,URINE NEGATIVE (NEGATIVE); NITRITE,URINE NEGATIVE (NEGATIVE); PROTEIN,URINE 30 mg/dL (NEGATIVE); URINE SPECIFIC GRAVITY 1.059; UROBILINOGEN,URINE NEGATIVE mg/dL (<2.0)
[2019-10-30] MEDS: FAMOTIDINE 20 MG TABLET PO SCH (21:44)
[2019-10-30] MEDS: DRONEDARONE HYDROCHLORIDE 400 MG TABLET PO SCH (21:45)
[2019-10-31 04:26] LABS: ABSOLUTE BASOPHILS # (AUTO) 0.1 10^3/uL (0.0-0.2); ABSOLUTE EOSINOPHILS # (AUTO) 0.1 10^3/uL (0.0-0.6); ABSOLUTE MONOCYTES (AUTO) 0.8 10^3/uL (0.1-1.4); ABSOLUTE NEUT (AUTO) 6.1 10^3/uL (1.7-8.2); EOSINOPHILS % (AUTO) 1.4 % (0-6); HEMATOCRIT 40.3 % (37.9-51.0); LYMPHOCYTES % (AUTO) 22.1 % (13-45); MEAN CORPUSCULAR HEMOGLOBIN 31.4 pg (27.0-33.4); MEAN CORPUSCULAR HGB CONC 34.1 g/dL (32.0-36.0); MEAN CORPUSCULAR VOLUME 92 fl (80-97); MONOCYTES % (AUTO) 8.3 % (3-13); PLATELET COUNT 294 10^3/uL (150-450); RED BLOOD COUNT 4.38 10^6/uL (4.35-5.55); RED CELL DISTRIBUTION WIDTH 12.6 % (11.5-14.0); SEGMENTED NEUTROPHILS % (AUTO) 67.2 % (42-78); TOTAL CELLS COUNTED % (AUTO) 100 %; WHITE BLOOD COUNT 9.1 10^3/uL (4.0-10.5)
[2019-10-31 04:31] LABS: HEMOGLOBIN 13.8 g/dL (13.5-17.0)
[2019-10-31] MEDS: DILTIAZEM HCL/D5W 125 MG/125 ML RTUINJ IV PRN (05:32)
[2019-10-31] MEDS: ENOXAPARIN SODIUM INJ 100 MG/1 ML DISP.SYRIN SUBCUT SCH (05:34)
[2019-10-31] MEDS: FAMOTIDINE 20 MG TABLET PO SCH ×2 (09:28→21:17)
[2019-10-31] MEDS: DILTIAZEM HCL 180 MG CAPSULE.CR PO SCH (09:29)
[2019-10-31] MEDS: DRONEDARONE HYDROCHLORIDE 400 MG TABLET PO SCH ×2 (09:30→21:18)
[2019-10-31] MEDS: PHENYTOIN SODIUM EXTENDED 100 MG CAPSULE PO SCH (09:30)
[2019-10-31] MEDS: ENALAPRIL MALEATE 10 MG TABLET PO SCH (09:31)
[2019-10-31] MEDS ORDERED: (PENDING PHARMACY ID) (Diltiazem Hcl [Diltiazem 24hr Er] 180 MG) PO SCH (10:00)
[2019-10-31] MEDS ORDERED: (PENDING PHARMACY ID) (Enalapril Maleate [Vasotec 20 Mg Tablet] 20 MG) PO SCH (10:00)
--- NOTE | 2019-10-31 12:23 | PDOC CRITICAL CARE PROG REPORT ---
General Date:: 10/31/19 ICU Day:: 2 Hospital Day:: 2 Resuscitation Status: Full Code Events in the past 12 to 24 Hours:: More stable from a cardiovascular and pulmonary standpoint. Reason for ICU Addmission:: Multiple PEs and pulmonary infarction. R heart strain and rapid afib. - Medications: Medications reviewed and adjusted accordingly: Yes Vasopressors:: None Sedation:: None Physical Exam Vital Signs: Temp Pulse Resp BP Pulse Ox 98.1 F 81 19 139/90 H 89 L 10/31/19 08:00 10/31/19 09:31 10/31/19 10:00 10/31/19 09:51 10/31/19 10:00 Intake & Output 10/30/19 10/31/19 11/01/19 06:59 06:59 06:59 Intake Total 237 1000 Output Total 900 0 Balance -663 1000 Weight 105.5 kg Weight/Height Weight 105.5 kg Height 5 ft 9 in General appearance: PRESENT: no acute distress, well-developed, well-nourished Head exam: PRESENT: atraumatic, normocephalic Eye exam: PRESENT: conjunctiva pink, EOMI, PERRLA. ABSENT: scleral icterus Ear exam: PRESENT: normal external ear exam Mouth exam: PRESENT: moist, tongue midline Respiratory exam: PRESENT: clear to auscultation eduard, crackles - Faint crackles.. ABSENT: rales, rhonchi, wheezes Cardiovascular exam: PRESENT: RRR. ABSENT: diastolic murmur, rubs, systolic murmur Vascular exam: PRESENT: normal capillary refill GI/Abdominal exam: PRESENT: normal bowel sounds, soft. ABSENT: distended, guarding, mass, organolmegaly, rebound, tenderness Rectal exam: PRESENT: deferred Extremities exam: PRESENT: full ROM. ABSENT: calf tenderness, clubbing, pedal edema Neurological exam: PRESENT: alert, awake, oriented to person, oriented to place, oriented to time, oriented to situation, CN II-XII grossly intact. ABSENT: motor sensory deficit Psychiatric exam: PRESENT: appropriate affect, normal mood. ABSENT: homicidal ideation, suicidal ideation Skin exam: PRESENT: dry, intact, warm. ABSENT: cyanosis, rash Laboratory/Radiographs Laboratory Results: 10/31/19 03:40 10/30/19 13:20 10/30/19 10/30/19 10/30/19 13:20 13:20 13:20 WBC 13.1 H RBC 5.13 Hgb 16.5 Hct 46.5 MCV 91 MCH 32.1 MCHC 35.4 RDW 12.4 Plt Count 399 Seg Neutrophils % 72.6 Sodium 140.1 Potassium 4.4 Chloride 101 Carbon Dioxide 25 Anion Gap 14 BUN 15 Creatinine 0.86 Est GFR ( Amer) > 60 Glucose 113 H Lactic Acid Calcium 9.5 Magnesium 2.1 Total Bilirubin 0.6 AST 53 Alkaline Phosphatase 109 Total Protein 8.2 Albumin 3.9 TSH 1.02 Free T4 1.26 Free T3 pg/mL 3.16 Urine Color Urine Appearance Urine pH Ur Specific [place] Urine Protein Urine Glucose (UA) Urine Ketones Urine Blood Urine Nitrite Ur Leukocyte Esterase Urine WBC (Auto) Urine RBC (Auto) 10/30/19 10/30/19 10/31/19 14:36 18:50 03:40 WBC 9.1 RBC 4.38 Hgb 13.8 D Hct 40.3 MCV 92 MCH 31.4 MCHC 34.1 RDW 12.6 Plt Count 294 Seg Neutrophils % 67.2 Sodium Potassium Chloride Carbon Dioxide Anion Gap BUN Creatinine Est GFR ( Amer) Glucose Lactic Acid 1.9 Calcium Magnesium Total Bilirubin AST Alkaline Phosphatase Total Protein Albumin TSH Free T4 Free T3 pg/mL Urine Color YELLOW Urine Appearance CLEAR Urine pH 5.0 Ur Specific [place] 1.059 Urine Protein 30 H Urine Glucose (UA) NEGATIVE Urine Ketones NEGATIVE Urine Blood NEGATIVE Urine Nitrite NEGATIVE Ur Leukocyte Esterase NEGATIVE Urine WBC (Auto) 5 Urine RBC (Auto) 4 10/30/19 10/31/19 13:20 03:40 Troponin I < 0.012 < 0.012 NT-Pro-B Natriuret Pep 730 H Impressions: Chest X-Ray 10/30/19 12:56 IMPRESSION: Cannot exclude a limited left lower lobe or right upper lobe p neumonia. Chest/Abdomen CTA 10/30/19 14:10 IMPRESSION: 1. Extensive bilateral pulmonary emboli with findings of right ventricular strain. 2. Areas of patchy consolidation in the right upper lobe (image 44 of series 4) and left upper lobe (image 47 of series 4) could represent pulmonary infarcts or multifocal pneumonia. Clinical correlation is recommend. All labs, radiographs, diagnostic studies and EKGs were personally reviewed: Yes In addition, reports of radiographic and diagnostic studies were read: Yes Assessment and Plan - Diagnosis (1) Cough Is this a current diagnosis for this admission?: Yes Plan: Nearly resolved (2) Dyspnea Qualifiers: Dyspnea type: shortness of breath Qualified Code(s): R06.02 - Shortness of breath; R06.00 - Dyspnea, unspecified; R06.01 - Orthopnea Is this a current diagnosis for this admission?: Yes Plan: Improved but patient has not ambulated more than bed to toilet. (3) New onset atrial fibrillation Is this a current diagnosis for this admission?: Yes Plan: Resolved. On multaq (4) Pulmonary embolism and infarction Is this a current diagnosis for this admission?: Yes Plan: Is on full dose lovenox. Will switch over to eliquis. (5) Lung abnormality Is this a current diagnosis for this admission?: Yes Plan: Small but spiculated lesion needs repeat CT. Bx will entail stopping eliquis for a week. Not ready yet. The possibility of this being malignant has been brought up to him. Plan Summary: Change to eliquis, keep on multaq. Downgrade to telemetry. Critical Time Critical Time (minutes): 30 Level of Care: TELE Anticipated discharge: Home Within: within 48 hours -: 1. The care of a critical patient is a dynamic process. This note is a dermatology sales representative synopsis but static in nature. The timeframe for treatments given in order is not necessarily the actual time these treatments may have been done. 2. This patient requires critical care secondary to ongoing requirements for therapy not offered or safe outside the critical care environment. Transfer to a lower level of care will result in altered life or limb morbidity and mortality. 3. Multidisciplinary rounds completed. 4. ABCDE bundle addressed.
[2019-10-31] MEDS: APIXABAN 5 MG TABLET PO SCH ×2 (13:25→21:18)
[2019-10-31] MEDS ORDERED: ENOXAPARIN SODIUM INJ 60 MG/0.6 ML DISP.SYRIN SUBCUT ONE (19:45)
--- NOTE | 2019-11-01 00:13 | PDOC PROGRESS REPORT ---
Subjective Progress Note for:: 10/31/19 Subjective:: Patient known to me from before as he was seen in the office. Patient denied any previous heart problem. He claims that about a week ago his left leg had some pain and discomfort. However he did not pay much attention. Subsequently he started having coughing spells. He did go to urgent care center and got treated for this. This morning, patient felt very weak and tired and was near syncopal therefore he came to the emergency room. He was noted to be in atrial fibrillation with rapid ventricular response. I was given a call mainly regarding treatment of atrial fibrillation. Review of records shows that we have no record of him having him ever having atrial fibrillation. A decision was made to admit him for new onset atrial fibrillation however subsequently he was noted to have multiple pulmonary embolism. A stat echo was performed which was reviewed by me. It did show some RV enlargement. However LV EF and RVEF were noted to be normal. IVC was felt to be on a small in size. Patient was admitted and I was asked to follow along for atrial fibrillation. 10/31/2019 patient was seen in the evening. Yesterday patient was placed on Multaq 400 mg PO bid. Today patient started on Eliquis was but normally there should be 24-hour overlap. Gave extra 50 mg of Lovenox at 6 pm. Reason For Visit: MULTIPLE PES, PULMONDARY INFARCTIONS. RAPID AFIB. Physical Exam Vital Signs: Temp Pulse Resp BP Pulse Ox 97.6 F 90 21 H 126/86 H 95 10/31/19 14:00 10/31/19 20:00 10/31/19 22:00 10/31/19 15:53 10/31/19 22:00 Intake & Output 10/30/19 10/31/19 11/01/19 06:59 06:59 06:59 Intake Total 237 1000 Output Total 900 275 Balance -663 725 Weight 105.5 kg 105.5 kg Exam: GEN: NAD, patient alert oriented x3. Appearance and grooming WNL HEENT : Eyes: LAURYN, Ears: No significant abnormalities, Nose: No significant abnormalities. normocephalic atraumatic. Flat midface (-), Receding chin (-) ORAL : Mallampati class IV, narrow arched palate (-) Tonsils: Not enlarged. NECK: no thyromegaly, no masses, trachea is central, JVD is not elevated, carotids 2+ with bruit (-) RESP: lungs clear, no rales, wheezes or rhonchi, nonlabored, accessory muscles of respiration use (-). CV: NL S1 and S2. No significant murmurs noted, no gallop, no extra sounds, no clicks, no rub noted. GI: abd NT to palpation, no masses, bowel sounds present, no guarding or rigidity noted. EXT: no clubbing, (-) cyanosis, edema (-), perpheral pulses diminished (no) MUSC/SKEL: no acute joint swelling noted. Muscle strength is generally intact. NEURO: no significant focal neurological deficits are note, sensation grossly intact, AO x 3 PSYCH: NL mood and affect. judgment and insight noted to be intact. SKIN: (-) rash, (-)Signs of pruritus, (-) other significant abnormality Results Laboratory Results: 10/31/19 03:40 10/30/19 13:20 10/31/19 03:40 WBC 9.1 RBC 4.38 Hgb 13.8 D Hct 40.3 MCV 92 MCH 31.4 MCHC 34.1 RDW 12.6 Plt Count 294 Seg Neutrophils % 67.2 10/30/19 10/31/19 13:20 03:40 Troponin I < 0.012 < 0.012 NT-Pro-B Natriuret Pep 730 H Impressions: Chest X-Ray 10/30/19 12:56 IMPRESSION: Cannot exclude a limited left lower lobe or right upper lobe pneumonia. Chest/Abdomen CTA 10/30/19 14:10 IMPRESSION: 1. Extensive bilateral pulmonary emboli with findings of right ventricular strain. 2. Areas of patchy consolidation in the right upper lobe (image 44 of series 4) and left upper lobe (image 47 of series 4) could represent pulmonary infarcts or multifocal pneumonia. Clinical correlation is recommend. Assessment & Plan - Diagnosis (1) Pulmonary embolism and infarction Is this a current diagnosis for this admission?: Yes (2) Lung abnormality Is this a current diagnosis for this admission?: Yes (3) New onset atrial fibrillation Is this a current diagnosis for this admission?: Yes - Notes Notes: 10/31/2019 Pulmonary embolism: patient being treated adequately. No evidence of right heart decompensation. Atrial fibrillation: patient maintaining sinus rhythm. Patient at risk for recurrence. Placed patient on multaq which issued continue for about a month. Continue Cardizem therapy for rate control. Long abnormality: to be evaluated further as an outpatient. I'll be happy to pursue this. - Time Time with patient: Greater than 35 minutes - Considerable time spent discussing pulmonary embolism, prognosis, atrial fibrillation, prognosis et cetera with patient's and daughter at bedside. Medications reviewed and adjusted accordingly: Yes
[2019-11-01 04:08] LABS: HEMATOCRIT 40.3 % (37.9-51.0); MEAN CORPUSCULAR HEMOGLOBIN 31.8 pg (27.0-33.4); MEAN CORPUSCULAR HGB CONC 34.9 g/dL (32.0-36.0); MEAN CORPUSCULAR VOLUME 91 fl (80-97); PLATELET COUNT 280 10^3/uL (150-450); RED BLOOD COUNT 4.42 10^6/uL (4.35-5.55); RED CELL DISTRIBUTION WIDTH 12.6 % (11.5-14.0); WHITE BLOOD COUNT 7.3 10^3/uL (4.0-10.5)
[2019-11-01 08:04] LABS: APPEARANCE,URINE SLIGHTLY-CLOUDY; BILIRUBIN,URINE NEGATIVE (NEGATIVE); COLOR,URINE YELLOW; GLUCOSE, URINE NEGATIVE (NEGATIVE); KETONES,URINE NEGATIVE (NEGATIVE); LEUKOCYTE ESTERASE,URINE NEGATIVE (NEGATIVE); NITRITE,URINE NEGATIVE (NEGATIVE); PROTEIN,URINE 30 mg/dL (NEGATIVE); URINE SPECIFIC GRAVITY 1.026; UROBILINOGEN,URINE NEGATIVE mg/dL (<2.0)
[2019-11-01] MEDS: FAMOTIDINE 20 MG TABLET PO SCH ×2 (09:06→21:51)
[2019-11-01] MEDS: APIXABAN 5 MG TABLET PO SCH ×2 (09:06→17:36)
[2019-11-01] MEDS: DILTIAZEM HCL 180 MG CAPSULE.CR PO SCH (09:06)
[2019-11-01] MEDS: ENALAPRIL MALEATE 10 MG TABLET PO SCH (09:07)
[2019-11-01] MEDS: DRONEDARONE HYDROCHLORIDE 400 MG TABLET PO SCH ×2 (09:08→21:51)
[2019-11-01] MEDS: PHENYTOIN SODIUM EXTENDED 100 MG CAPSULE PO SCH (09:08)
--- NOTE | 2019-11-01 13:00 | PDOC CRITICAL CARE PROG REPORT ---
General Date:: 11/01/19 ICU Day:: 2 Resuscitation Status: Full Code Events in the past 12 to 24 Hours:: Improvement in oxygenation. Review of systems relevant to events:: CV and pulmonary. Reason for ICU Addmission:: Multiple PEs and pulmonary infarction. R heart strain and rapid afib. - Medications: Medications reviewed and adjusted accordingly: Yes Vasopressors:: None Sedation:: None Physical Exam Vital Signs: Temp Pulse Resp BP Pulse Ox 97.0 F 98 21 H 139/86 H 91 L 11/01/19 12:00 11/01/19 12:00 11/01/19 12:00 11/01/19 12:00 11/01/19 12:00 Intake & Output 10/31/19 11/01/19 11/02/19 06:59 06:59 06:59 Intake Total 237 1000 400 Output Total 900 375 200 Balance -663 625 200 Weight 105.5 kg 105.9 kg Weight/Height Weight 105.9 kg Height 5 ft 9 in General appearance: PRESENT: no acute distress, well-developed, well-nourished Head exam: PRESENT: atraumatic, normocephalic Eye exam: PRESENT: conjunctiva pink, EOMI, PERRLA. ABSENT: scleral icterus Ear exam: PRESENT: normal external ear exam Mouth exam: PRESENT: moist, tongue midline Cardiovascular exam: PRESENT: RRR. ABSENT: diastolic murmur, rubs, systolic murmur GI/Abdominal exam: PRESENT: normal bowel sounds, soft. ABSENT: distended, guarding, mass, organolmegaly, rebound, tenderness Rectal exam: PRESENT: deferred Extremities exam: PRESENT: full ROM. ABSENT: calf tenderness, clubbing, pedal edema Neurological exam: PRESENT: alert, awake, oriented to person, oriented to place, oriented to time, oriented to situation, CN II-XII grossly intact. ABSENT: motor sensory deficit Psychiatric exam: PRESENT: appropriate affect, normal mood. ABSENT: homicidal ideation, suicidal ideation Skin exam: PRESENT: dry, intact, warm. ABSENT: cyanosis, rash Laboratory/Radiographs Laboratory Results: 11/01/19 03:45 10/30/19 13:20 11/01/19 11/01/19 03:45 07:36 WBC 7.3 RBC 4.42 Hgb 14.0 Hct 40.3 MCV 91 MCH 31.8 MCHC 34.9 RDW 12.6 Plt Count 280 Urine Color YELLOW Urine Appearance SLIGHTLY-CLOUDY Urine pH 5.0 Ur Specific [place] 1.026 Urine Protein 30 H Urine Glucose (UA) NEGATIVE Urine Ketones NEGATIVE Urine Blood NEGATIVE Urine Nitrite NEGATIVE Ur Leukocyte Esterase NEGATIVE Urine WBC (Auto) 1 Urine RBC (Auto) 2 10/30/19 10/31/19 13:20 03:40 Troponin I < 0.012 < 0.012 NT-Pro-B Natriuret Pep 730 H Impressions: Chest X-Ray 10/30/19 12:56 IMPRESSION: Cannot exclude a limited left lower lobe or right upper lobe pneumonia. Chest/Abdomen CTA 10/30/19 14:10 IMPRESSION: 1. Extensive bilateral pulmonary emboli with findings of right ventricular strain. 2. Areas of patchy consolidation in the right upper lobe (image 44 of series 4) and left upper lobe (image 47 of series 4) could represent pulmonary infarcts or multifocal pneumonia. Clinical correlation is recommend. All labs, radiographs, diagnostic studies and EKGs were personally reviewed: Yes In addition, reports of radiographic and diagnostic studies were read: Yes Assessment and Plan - Diagnosis (1) Cough Is this a current diagnosis for this admission?: Yes (2) Dyspnea Qualifiers: Dyspnea type: shortness of breath Qualified Code(s): R06.02 - Shortness of breath; R06.00 - Dyspnea, unspecified; R06.01 - Orthopnea Is this a current diagnosis for this admission?: Yes Plan: Resolved (3) New onset atrial fibrillation Is this a current diagnosis for this admission?: Yes Plan: Resolved on Multaq. To stay on this X 1 month. (4) Pulmonary embolism and infarction Is this a current diagnosis for this admission?: Yes Plan: Still has cough. Slightly hypoxic. Not dyspnic. (5) Lung abnormality Is this a current diagnosis for this admission?: Yes Plan: Needs follow up CT when more stable. Dr. Crowley has offered to follow. (6) Cor pulmonale Is this a current diagnosis for this admission?: Yes Plan: With evidence of R heart strain, PEs, atrial fibrillation he does qualify for acute cor pulmonale which is resolving. Plan Summary: Ambulate if O2 saturation stays above 88% consistently will discharge on eliquis and Multaq. Critical Time Critical Time (minutes): 30 Level of Care: TELE Anticipated discharge: Home Within: within 24 hours -: 1. The care of a critical patient is a dynamic process. This note is a desk representative synopsis but static in nature. The timeframe for treatments given in order is not necessarily the actual time these treatments may have been done. 2. This patient requires critical care secondary to ongoing requirements for therapy not offered or safe outside the critical care environment. Transfer to a lower level of care will result in altered life or limb morbidity and mortality. 3. Multidisciplinary rounds completed. 4. ABCDE bundle addressed.
[2019-11-02 07:32] VITALS: BP 140/91
[2019-11-02] MEDS: DILTIAZEM HCL 180 MG CAPSULE.CR PO SCH (09:19)
[2019-11-02] MEDS: PHENYTOIN SODIUM EXTENDED 100 MG CAPSULE PO SCH (09:22)
[2019-11-02] MEDS: DRONEDARONE HYDROCHLORIDE 400 MG TABLET PO SCH (09:22)
[2019-11-02] MEDS: ENALAPRIL MALEATE 10 MG TABLET PO SCH (09:22)
[2019-11-02] MEDS: APIXABAN 5 MG TABLET PO SCH (09:22)
[2019-11-02] MEDS: FAMOTIDINE 20 MG TABLET PO SCH (09:22)
--- NOTE | 2019-11-02 10:32 | PDOC DISCHARGE SUMMARY ---
Impression - Admit/DC Date/PCP Admission Date/Primary Care Provider: 10/30/19 17:10 SELINA STEINER Discharge Date: 11/02/19 - Discharge Diagnosis (1) Cough Is this a current diagnosis for this admission?: Yes (2) Dyspnea Is this a current diagnosis for this admission?: Yes (3) New onset atrial fibrillation Is this a current diagnosis for this admission?: Yes (4) Pulmonary embolism and infarction Is this a current diagnosis for this admission?: Yes (5) Lung abnormality Is this a current diagnosis for this admission?: Yes (6) Cor pulmonale Is this a current diagnosis for this admission?: Yes - Additional Information Resuscitation Status: Full Code Referrals: SELINA STEINER MD [Primary Care Provider] - 11/07/19 10:30 am (Appointment with Dr. Steiner WednesdayNovember 07 at 1030) Home Medications: Diltiazem HCl [Diltiazem ER] 180 mg PO DAILY 10/30/19 Enalapril Maleate [Vasotec 20 mg Tablet] 20 mg PO DAILY 10/30/19 Phenytoin Sodium Extended [Dilantin 100 mg Capsule.er] 600 mg PO DAILY 10/30/19 History of Present Illiness History of Present Illness: This patient is a 59 yo man with a cough X 2 weeks, sob which worsened the day of admission. Found in the ED to had multiple bilateral pulmonary emboli. He was had a normal RV and LV EF but with RV strain and rapid atrial fibrillation at 180. This qualified him for acute cor pulmonale. He can now walk about the unit without oxygen with an O2 saturation in the low 90s, asymptomatic. He is seen by Dr. Steiner of cardiology as an out patient. Hospital Course Hospital Course: He has done well with no afib recurrence. Resolving of SOB. Still has cough but improved. No chest pain. Evidence of small infarctions buit no hemoptysis. He is stable to go home on multaq and eliquis. He will see Dr. Steiner Nov 07. Physical Exam Vital Signs: Temp Pulse Resp BP Pulse Ox 97.4 F 78 20 140/91 H 90 L 11/02/19 07:31 11/02/19 08:00 11/02/19 10:00 11/02/19 07:31 11/02/19 10:00 Intake & Output 11/01/19 11/02/19 11/03/19 06:59 06:59 06:59 Intake Total 1000 1750 Output Total 375 1500 Balance 625 250 Weight 105.9 kg 104.6 kg General appearance: PRESENT: no acute distress, well-developed, well-nourished Head exam: PRESENT: atraumatic, normocephalic Eye exam: PRESENT: conjunctiva pink, EOMI, PERRLA. ABSENT: scleral icterus Ear exam: PRESENT: normal external ear exam Mouth exam: PRESENT: moist, tongue midline Respiratory exam: PRESENT: clear to auscultation eduard. ABSENT: rales, rhonchi, wheezes Cardiovascular exam: PRESENT: RRR. ABSENT: diastolic murmur, rubs, systolic murmur Pulses: PRESENT: normal dorsalis pedis pul GI/Abdominal exam: PRESENT: ascites Rectal exam: PRESENT: deferred Neurological exam: PRESENT: alert, awake, oriented to person, oriented to place, oriented to time, oriented to situation, CN II-XII grossly intact. ABSENT: motor sensory deficit Psychiatric exam: PRESENT: appropriate affect, normal mood. ABSENT: homicidal ideation, suicidal ideation Skin exam: PRESENT: dry, intact, warm. ABSENT: cyanosis, rash Results Laboratory Results: WBC 7.3 10^3/uL (4.0-10.5) 11/01/19 03:45 RBC 4.42 10^6/uL (4.35-5.55) 11/01/19 03:45 Hgb 14.0 g/dL (13.5-17.0) 11/01/19 03:45 Hct 40.3 % (37.9-51.0) 11/01/19 03:45 MCV 91 fl (80-97) 11/01/19 03:45 MCH 31.8 pg (27.0-33.4) 11/01/19 03:45 MCHC 34.9 g/dL (32.0-36.0) 11/01/19 03:45 RDW 12.6 % (11.5-14.0) 11/01/19 03:45 Plt Count 280 10^3/uL (150-450) 11/01/19 03:45 Lymph % (Auto) 22.1 % (13-45) 10/31/19 03:40 [place] % (Auto) 8.3 % (3-13) 10/31/19 03:40 Eos % (Auto) 1.4 % (0-6) 10/31/19 03:40 Baso % (Auto) 1.0 % (0-2) 10/31/19 03:40 Absolute Neuts (auto) 6.1 10^3/uL (1.7-8.2) 10/31/19 03:40 Absolute Lymphs (auto) 2.0 10^3/uL (0.5-4.7) 10/31/19 03:40 Absolute Monos (auto) 0.8 10^3/uL (0.1-1.4) 10/31/19 03:40 Absolute Eos (auto) 0.1 10^3/uL (0.0-0.6) 10/31/19 03:40 Absolute Basos (auto) 0.1 10^3/uL (0.0-0.2) 10/31/19 03:40 Seg Neutrophils % 67.2 % (42-78) 10/31/19 03:40 D-Dimer 4.82 ug/mL (0.00-0.50) H 10/30/19 13:20 Sodium 140.1 mmol/L (137-145) 10/30/19 13:20 Potassium 4.4 mmol/L (3.6-5.0) 10/30/19 13:20 Chloride 101 mmol/L (98-107) 10/30/19 13:20 Carbon Dioxide 25 mmol/L (22-30) 10/30/19 13:20 Anion Gap 14 (5-19) 10/30/19 13:20 BUN 15 mg/dL (7-20) 10/30/19 13:20 Creatinine 0.86 mg/dL (0.52-1.25) 10/30/19 13:20 Est GFR ( Amer) > 60 (>60) 10/30/19 13:20 Est GFR (MDRD) Non-Af > 60 (>60) 10/30/19 13:20 Glucose 113 mg/dL (75-110) H 10/30/19 13:20 Lactic Acid 1.9 mmol/L (0.7-2.1) 10/30/19 14:36 Calcium 9.5 mg/dL (8.4-10.2) 10/30/19 13:20 Magnesium 2.1 mg/dL (1.6-2.3) 10/30/19 13:20 Total Bilirubin 0.6 mg/dL (0.2-1.3) 10/30/19 13:20 Direct Bilirubin 0.5 mg/dL (0.0-0.4) H 10/30/19 13:20 Neonat Total Bilirubin Not Reportable 10/30/19 13:20 Neonat Direct Bilirubin Not Reportable 10/30/19 13:20 Neonat Indirect Bili Not Reportable 10/30/19 13:20 AST 53 U/L (17-59) 10/30/19 13:20 ALT 103 U/L (<50) 10/30/19 13:20 Alkaline Phosphatase 109 U/L (38-126) 10/30/19 13:20 Troponin I < 0.012 ng/mL 10/31/19 03:40 NT-Pro-B Natriuret Pep 730 pg/mL (<125) H 10/30/19 13:20 Total Protein 8.2 g/dL (6.3-8.2) 10/30/19 13:20 Albumin 3.9 g/dL (3.5-5.0) 10/30/19 13:20 TSH 1.02 uIU/mL (0.47-4.68) 10/30/19 13:20 Free T4 1.26 ng/dL (0.78-2.19) 10/30/19 13:20 Free T3 pg/mL 3.16 pg/mL (2.77-5.27) 10/30/19 13:20 Urine Color YELLOW 11/01/19 07:36 Urine Appearance SLIGHTLY-CLOUDY 11/01/19 07:36 Urine pH 5.0 (5.0-9.0) 11/01/19 07:36 Ur Specific [place] 1.026 11/01/19 07:36 Urine Protein 30 mg/dL (NEGATIVE) H 11/01/19 07:36 Urine Glucose (UA) NEGATIVE mg/dL (NEGATIVE) 11/01/19 07:36 Urine Ketones NEGATIVE mg/dL (NEGATIVE) 11/01/19 07:36 Urine Blood NEGATIVE (NEGATIVE) 11/01/19 07:36 Urine Nitrite NEGATIVE (NEGATIVE) 11/01/19 07:36 Urine Bilirubin NEGATIVE (NEGATIVE) 11/01/19 07:36 Urine Urobilinogen NEGATIVE mg/dL (<2.0) 11/01/19 07:36 Ur Leukocyte Esterase NEGATIVE (NEGATIVE) 11/01/19 07:36 Urine WBC (Auto) 1 /HPF 11/01/19 07:36 Urine RBC (Auto) 2 /HPF 11/01/19 07:36 Squamous Epi Cells Auto <1 /HPF 11/01/19 07:36 Urine Mucus (Auto) MANY /LPF 11/01/19 07:36 Urine Ascorbic Acid NEGATIVE (NEGATIVE) 11/01/19 07:36 10/30/19 10/31/19 13:20 03:40 Troponin I < 0.012 < 0.012 NT-Pro-B Natriuret Pep 730 H EKG Comments: SR Impressions: Chest X-Ray 10/30/19 12:56 IMPRESSION: Cannot exclude a limited left lower lobe or right upper lobe pneumonia. Chest/Abdomen CTA 10/30/19 14:10 IMPRESSION: 1. Extensive bilateral pulmonary emboli with findings of right ventricular strain. 2. Areas of patchy consolidation in the right upper lobe (image 44 of series 4) and left upper lobe (image 47 of series 4) could represent pulmonary infarcts or multifocal pneumonia. Clinical correlation is recommend. Plan Health Concerns: Evaluation of lung nodule to rule out malignancy. Pt and Dr. Steiner aware. Resolving of acute problem, PEs. Plan of Treatment: Eliquis 5mg BID and multac 400 mg BID for a month. Goals: Back to work soon. Critical Time: 40 Level of Care: TELE Stroke Is this a Stroke Patient?: No Acute Heart Failure - Is this a Heart Failure Patient?: No
--- NOTE | 2019-11-02 18:32 | PDOC PROGRESS REPORT ---
Subjective Progress Note for:: 11/01/19 Subjective:: Patient known to me from before as he was seen in the office. Patient denied any previous heart problem. He claims that about a week ago his left leg had some pain and discomfort. However he did not pay much attention. Subsequently he started having coughing spells. He did go to urgent care center and got treated for this. This morning, patient felt very weak and tired and was near syncopal therefore he came to the emergency room. He was noted to be in atrial fibrillation with rapid ventricular response. I was given a call mainly regarding treatment of atrial fibrillation. Review of records shows that we have no record of him having him ever having atrial fibrillation. A decision was made to admit him for new onset atrial fibrillation however subsequently he was noted to have multiple pulmonary embolism. A stat echo was performed which was reviewed by me. It did show some RV enlargement. However LV EF and RVEF were noted to be normal. IVC was felt to be on a small in size. Patient was admitted and I was asked to follow along for atrial fibrillation. 10/31/2019 patient was seen in the evening. Yesterday patient was placed on Multaq 400 mg PO bid. Today patient started on Eliquis was but normally there should be 24-hour overlap. Gave extra 50 mg of Lovenox at 6 pm. 11/01/2019 patient was seen in the evening rounds. He seems to be doing well. He told me that he' ambulating. Hospital is trying to determine if he would need oxygen at home. Patient did ask me question about whether he has pneumonia. Patient currently not on any antibiotics. Patient tells me is likely to be discharged tomorrow. Reason For Visit: MULTIPLE PES, PULMONDARY INFARCTIONS. RAPID AFIB. Physical Exam Vital Signs: Temp Pulse Resp BP Pulse Ox 98.3 F 90 24 H 136/91 H 97 11/01/19 16:00 11/01/19 16:00 11/01/19 16:00 11/01/19 16:00 11/01/19 16:00 Intake & Output 10/31/19 11/01/19 11/02/19 06:59 06:59 06:59 Intake Total 237 1000 880 Output Total 900 375 500 Balance -663 625 380 Weight 105.5 kg 105.9 kg General appearance: PRESENT: no acute distress, well-developed, well-nourished Head exam: PRESENT: atraumatic, normocephalic Eye exam: PRESENT: conjunctiva pink, EOMI, PERRLA. ABSENT: scleral icterus Ear exam: PRESENT: normal external ear exam Mouth exam: PRESENT: moist, tongue midline Neck exam: ABSENT: carotid bruit, JVD, lymphadenopathy, thyromegaly Respiratory exam: PRESENT: clear to auscultation eduard. ABSENT: rales, rhonchi, wheezes Cardiovascular exam: PRESENT: RRR. ABSENT: diastolic murmur, rubs, systolic murmur Pulses: PRESENT: normal dorsalis pedis pul, +1 pedal pulses bilateral Vascular exam: PRESENT: normal capillary refill GI/Abdominal exam: PRESENT: normal bowel sounds, soft. ABSENT: distended, guarding, mass, organolmegaly, rebound, tenderness Rectal exam: PRESENT: deferred Extremities exam: PRESENT: full ROM. ABSENT: calf tenderness, clubbing, pedal edema Neurological exam: PRESENT: alert, awake, oriented to person, oriented to place, oriented to time, oriented to situation, CN II-XII grossly intact. ABSENT: motor sensory deficit Psychiatric exam: PRESENT: appropriate affect, normal mood. ABSENT: homicidal ideation, suicidal ideation Skin exam: PRESENT: dry, intact, warm. ABSENT: cyanosis, rash Results Laboratory Results: 11/01/19 03:45 10/30/19 13:20 11/01/19 11/01/19 03:45 07:36 WBC 7.3 RBC 4.42 Hgb 14.0 Hct 40.3 MCV 91 MCH 31.8 MCHC 34.9 RDW 12.6 Plt Count 280 Urine Color YELLOW Urine Appearance SLIGHTLY-CLOUDY Urine pH 5.0 Ur Specific [place] 1.026 Urine Protein 30 H Urine Glucose (UA) NEGATIVE Urine Ketones NEGATIVE Urine Blood NEGATIVE Urine Nitrite NEGATIVE Ur Leukocyte Esterase NEGATIVE Urine WBC (Auto) 1 Urine RBC (Auto) 2 10/30/19 10/31/19 13:20 03:40 Troponin I < 0.012 < 0.012 NT-Pro-B Natriuret Pep 730 H EKG Comments: Sinus rhythm, no acute ST-T wave changes are noted. No significant Tachycardia or bradycardia noted. Impressions: Chest X-Ray 10/30/19 12:56 IMPRESSION: Cannot exclude a limited left lower lobe or right upper lobe pneumonia. Chest/Abdomen CTA 10/30/19 14:10 IMPRESSION: 1. Extensive bilateral pulmonary emboli with findings of right ventricular strain. 2. Areas of patchy consolidation in the right upper lobe (image 44 of series 4) and left upper lobe (image 47 of series 4) could represent pulmonary infarcts or multifocal pneumonia. Clinical correlation is recommend. Assessment & Plan - Diagnosis (1) Pulmonary embolism and infarction Is this a current diagnosis for this admission?: Yes (2) Lung abnormality Is this a current diagnosis for this admission?: Yes (3) New onset atrial fibrillation Is this a current diagnosis for this admission?: Yes - Notes Notes: New onset atrial fibrillation: recommend rate control and chronic anticoagulation. Atrial fibrillation possibly related to pulmonary embolism but patient is at risk for recurrence due to obesity and sleep apnea syndrome. Patient would need to be evaluated for both conditions. Pulmonary embolism: patient had bilateral pulmonary embolism. Chronic anticoagulation should be continued for at least six months if not indefinitely. This was explained to the patient. Obesity: patient will benefit from weight loss. Possible underlying sleep apnea: patient will benefit from further evaluation. Patient can have it done as an outpatient. - Time Time with patient: 15-25 minutes
--- NOTE | 2019-11-02 18:36 | PDOC PROGRESS REPORT ---
Subjective Progress Note for:: 11/02/19 Subjective:: Patient known to me from before as he was seen in the office. Patient denied any previous heart problem. He claims that about a week ago his left leg had some pain and discomfort. However he did not pay much attention. Subsequently he started having coughing spells. He did go to urgent care center and got treated for this. This morning, patient felt very weak and tired and was near syncopal therefore he came to the emergency room. He was noted to be in atrial fibrillation with rapid ventricular response. I was given a call mainly regarding treatment of atrial fibrillation. Review of records shows that we have no record of him having him ever having atrial fibrillation. A decision was made to admit him for new onset atrial fibrillation however subsequently he was noted to have multiple pulmonary embolism. A stat echo was performed which was reviewed by me. It did show some RV enlargement. However LV EF and RVEF were noted to be normal. IVC was felt to be on a small in size. Patient was admitted and I was asked to follow along for atrial fibrillation. 10/31/2019 patient was seen in the evening. Yesterday patient was placed on Multaq 400 mg PO bid. Today patient started on Eliquis was but normally there should be 24-hour overlap. Gave extra 50 mg of Lovenox at 6 pm. 11/01/2019 patient was seen in the evening rounds. He seems to be doing well. He told me that he' ambulating. Hospital is trying to determine if he would need oxygen at home. Patient did ask me question about whether he has pneumonia. Patient currently not on any antibiotics. Patient tells me is likely to be discharged tomorrow. 11/02/2019 patient was seen on morning rounds. He was noted to be ambulatory without any difficulty. It seems that patient may not need any oxygen therapy. However details of ambulating O2 saturation is not available. Patient denied any chest pain. Patient denied in the shortness of breath. Reason For Visit: MULTIPLE PES, PULMONDARY INFARCTIONS. RAPID AFIB. Physical Exam Vital Signs: Temp Pulse Resp BP Pulse Ox 97.4 F 78 20 140/91 H 90 L 11/02/19 07:31 11/02/19 08:00 11/02/19 10:00 11/02/19 07:31 11/02/19 10:00 Intake & Output 11/01/19 11/02/19 11/03/19 06:59 06:59 06:59 Intake Total 1000 1750 Output Total 375 1500 Balance 625 250 Weight 105.9 kg 104.6 kg General appearance: PRESENT: no acute distress, well-developed, well-nourished Head exam: PRESENT: atraumatic, normocephalic Eye exam: PRESENT: conjunctiva pink, EOMI, PERRLA. ABSENT: scleral icterus Ear exam: PRESENT: normal external ear exam Mouth exam: PRESENT: moist, tongue midline Neck exam: ABSENT: carotid bruit, JVD, lymphadenopathy, thyromegaly Respiratory exam: PRESENT: clear to auscultation eduard. ABSENT: rales, rhonchi, wheezes Cardiovascular exam: PRESENT: RRR. ABSENT: diastolic murmur, rubs, systolic murmur Pulses: PRESENT: normal dorsalis pedis pul, +1 pedal pulses bilateral Vascular exam: PRESENT: normal capillary refill GI/Abdominal exam: PRESENT: normal bowel sounds, soft. ABSENT: distended, guarding, mass, organolmegaly, rebound, tenderness Rectal exam: PRESENT: deferred Extremities exam: PRESENT: full ROM. ABSENT: calf tenderness, clubbing, pedal edema Neurological exam: PRESENT: alert, awake, oriented to person, oriented to place, oriented to time, oriented to situation, CN II-XII grossly intact. ABSENT: motor sensory deficit Psychiatric exam: PRESENT: appropriate affect, normal mood. ABSENT: homicidal ideation, suicidal ideation Skin exam: PRESENT: dry, intact, warm. ABSENT: cyanosis, rash Results Laboratory Results: 11/01/19 03:45 10/30/19 13:20 10/30/19 10/31/19 13:20 03:40 Troponin I < 0.012 < 0.012 NT-Pro-B Natriuret Pep 730 H EKG Comments: Telemetry strips were reviewed. No significant arrhythmias noted. patient maintained sinus rhythm throughout. Impressions: Chest X-Ray 10/30/19 12:56 IMPRESSION: Cannot exclude a limited left lower lobe or right upper lobe pneu monia. Chest/Abdomen CTA 10/30/19 14:10 IMPRESSION: 1. Extensive bilateral pulmonary emboli with findings of right ventricular strain. 2. Areas of patchy consolidation in the right upper lobe (image 44 of series 4) and left upper lobe (image 47 of series 4) could represent pulmonary infarcts or multifocal pneumonia. Clinical correlation is recommend. Assessment & Plan - Diagnosis (1) Pulmonary embolism and infarction Is this a current diagnosis for this admission?: Yes (2) Lung abnormality Is this a current diagnosis for this admission?: Yes (3) New onset atrial fibrillation Is this a current diagnosis for this admission?: Yes - Notes Notes: Patient noted to be generally stable. Is being discharged today. Have recommended follow-up within a week of discharge. Informed that he would need periodic chest x-ray and possibly CT scan. Patient understands that. Duration of chronic anticoagulation discussed. Patient may need hypercoagulable workup. this will be completed after six months of chronic anticoagulation. - Time Time with patient: 15-25 minutes Medications reviewed and adjusted accordingly: Yes
== END 2019-11-02 10:49 | disposition home or self-care (01) | DRG 175 ==
LOC: ER 12:30 → EH 17:10 → ICU 17:49
PROVIDERS: ADMIT Anesthesiology; ATTEND Anesthesiology
DX: I26.09 Other pulmonary embolism with acute cor pulmonale (principal); I48.91 Unspecified atrial fibrillation; E66.9 Obesity, unspecified; R91.8 Other nonspecific abnormal finding of lung field; I10 Essential (primary) hypertension
CPT/HCPCS: 36415; 71045; 71275; 80053; 81001; 83605; 83735; 83880; 84439; 84443; 84481; 84484; 85025; 85027; 85379; 87040; 93005; 93010; 93306; 96365; 96366; 96368; 96376; 99231; 99239; 99285; 99291; J0696; J1650; J3490; J7030

== ENCOUNTER → 2019-12-11 | Outpatient (CLI) | payer OTHER ==
--- NOTE | 2019-12-11 13:09 | RADIOLOGY REPORT (SQ) ---
EXAM DESCRIPTION: CTA CHEST COMPLETED DATE/TIME: 12/11/2019 10:45 am REASON FOR STUDY: I26.99 OTHER PULMONARY EMBOLISM WITHOUT ACUTE COR PULMONALE I26.99 OTHER PULMONAR Y EMBOLISM WITHOUT ACUTE COR PULMONALE COMPARISON: 10/30/2019 TECHNIQUE: CT scan of the chest performed using helical scanning technique with dynamic intravenous contrast injection. Images reviewed with lung, soft tissue and bone windows. Reconstructed coronal and sagittal MPR images reviewed. Additional 3 dimensional post-processing performed to develop Maximal Intensity Projection images (TN P). All images stored on PACS. All CT scanners at this facility use dose modulation, iterative reconstruction, and/or weight based d osing when appropriate to reduce radiation dose to as low as reasonably achievable (ALARA). [facility]: Dose Right [facility]: CareDose [facility]: Dose Right [facility]: Teradose 4D [facility]: Sekal AS CONTRAST TYPE AND DOSE: contrast/concentration: Isovue 350.00 mg/ml; Total Contrast Delivered: 63.0 ml; Total Saline Delivered: 77.0 ml Contrast bolus adequate for pulmonary arteries and aorta. RENAL FUNCTION: Creatinine 0.6 RADIATION DOSE: CT Rad equipment meets quality standard of care and radiation dose reduction techniq ues were employed. CTDIvol: 7.5 - 14.7 mGy. DLP: 569 mGy-cm. . LIMITATIONS: None. FINDINGS: LUNGS AND PLEURA: There is limited linear atelectasis in right upper lobe. No pulmonary n odule. No pleural effusion. AORTA AND GREAT VESSELS: No aneurysm. No dissection. HEART: No pericardial effusion. No significant coronary artery calcifications. PULMONARY ARTERIES: No emboli visualized in the main pulmonary arteries or the segmental branches. HILAR AND MEDIASTINAL STRUCTURES: No identified masses or abnormal nodes. HARDWARE: None in the chest. UPPER ABDOMEN: No significant findings. Limited exam. THYROID AND OTHER SOFT TISSUES: No masses. No adenopathy. BONES: No acute or significant finding. 3D MIPS: Confirm above findings. OTHER: No other significant finding. IMPRESSION: Prior pulmonary emboli have resolved. There is mild linear atelectasis or scarring in t he right upper lobe. No other significant findings. COMMENT: Quality ID # [id number]: Final reports with documentation of one or more dose reduction techniques (e.g., Automated exposure control, adjustment of the mA and/or kV according to patient size, use of iterative reconstruction technique) TECHNICAL DOCUMENTATION: JOB ID: [id number] 2010 [employer]- All Rights Reserved Reading location - IP/workstation name: [email or web address]
== END ==
LOC: RAD 09:30
PROVIDERS: ATTEND Internal Medicine Cardiovascular Disease
DX: I26.99 Other pulmonary embolism without acute cor pulmonale (principal)
CPT/HCPCS: 71275; 82565

== ENCOUNTER 2019-12-20 12:01 | Emergency (ER) | payer OTHER ==
[2019-12-20 12:52] VITALS: BP 125/81
[2019-12-20] MEDS ORDERED: METHOCARBAMOL 750 MG TABLET PO ONE (13:02)
[2019-12-20] MEDS ORDERED: LIDOCAINE 5% (700 MG) TRANSDERMAL ADH..PATCH TP ONE (13:02)
--- NOTE | 2019-12-20 13:08 | ER Document Report ---
HPI - HPI Patient complains to provider of: low back pain Time Seen by Provider: 12/20/19 12:55 Onset: Other - wednesday Quality of pain: Achy Pain Level: 5 Context: 59-year-old male with history of PE presents to the emergency department with complaints of low back pain. Reports on Wednesday he was walking a dog slipped and twisted his back. He reports he did not fall. Patient reports pain since that time. Reports it hurts more to sit and then stand up. Reports he has had back pain in the past. Denies urinary bowel incontinence or retention. Denies saddle anesthesia. Reports every now and then he will feel some tingling in his right thigh. Patient is ambulating without any problems. Reports he is been taking Tylenol but he still not eating better. He was able to go to work on and Wednesday but he stood up off the time. Associated Symptoms: None Exacerbated by: Sitting Relieved by: Denies Similar symptoms previously: Yes Recently seen / treated by doctor: No - REPRODUCTIVE Reproductive: DENIES: : Past Medical History - General Information source: Patient - Social History Smoking Status: Never Smoker Chew tobacco use (# tins/day): No Frequency of alcohol use: None Drug Abuse: None Occupation: [employer] Lives with: Family Family History: Reviewed & Not Pertinent Patient has suicidal ideation: No Patient has homicidal ideation: No - Past Medical History Cardiac Medical History: Reports: Hx Hypertension, Hx Pulmonary Embolism Denies: Hx Heart Attack Pulmonary Medical History: Denies: Hx Asthma Neurological Medical History: Reports: Hx Seizures - LAST ONE 15 YEARS AGO D/T HEAD INJURY [id number]?. Denies: Hx Cerebrovascular Accident Renal/ Medical History: Denies: Hx Peritoneal Dialysis GI Medical History: Denies: Hx Hepatitis, Hx Hiatal Hernia, Hx Ulcer Infectious Medical History: Denies: Hx Hepatitis Past Surgical History: Reports: Hx Tonsillectomy. Denies: Hx Open Heart Surgery, Hx Pacemaker - Immunizations Hx Diphtheria, Pertussis, Tetanus Vaccination: Yes Vertical Provider Document - CONSTITUTIONAL Agree With Documented VS: Yes Exam Limitations: No Limitations General Appearance: WD/WN, No Apparent Distress - nontoxic looking - INFECTION CONTROL TRAVEL OUTSIDE OF THE [place] IN LAST 30 DAYS: No - HEENT HEENT: Atraumatic, Normocephalic. negative: Conjuctival Injection - NECK Neck: Normal Inspection, Supple. negative: Lymphadenopathy-Left, Lymphadenopathy-Right - RESPIRATORY Respiratory: Breath Sounds Normal, No Respiratory Distress - CARDIOVASCULAR Cardiovascular: Regular Rate, Regular Rhythm - GI/ABDOMEN Gastrointestinal: Abdomen Soft, Abdomen Non-Tender - BACK Back: Normal Inspection - No obvious deformity good distal movement sensation no erythema no swelling no warmth, patient ambulating without any problems. negative: CVA Tenderness-Right, CVA Tenderness-Left - MUSCULOSKELETAL/EXTREMETIES Musculoskeletal/Extremeties: [place] - NEURO Level of Consciousness: Awake, Alert, Appropriate Motor/Sensory: No Motor Deficit - DERM Integumentary: Warm, Dry Adult Front & Back Diagram: 1 - Low back pain Course - Re-evaluation Re-evalutation: 12/20/19 13:43 59-year-old male presents to the emergency department with complaints of low back pain after he twisted his back Wednesday while walking his dog on his deck. Denies falling. Denies urinary bowel incontinence or retention. Denies saddle anesthesia. Denies history of IV drug use or steroid use. Patient ambulating without problems. He is gone to work Wednesday and Wednesday but reports it hurts when he stands from a sitting position. Low suspicion for any meningitis, fracture, expanding/ruptured AAA, cauda equina syndrome, epidural mass lesion/abscess, herniated disc causing severe spinal stenosis, or other systemic infection at this time. Patient is aware that this condition can change from initial presentation and that she needs monitor symptoms closely for any acute changes. Lumbar Spine X-Ray 12/20/19 13:02 IMPRESSION: Degenerative changes most marked at L4-L5. Loss of the normal lumbar lordosis. X-ray negative. Degenerative changes noted. Patient was instructed on muscle relaxer Lidoderm patch and importance of follow-up with his primary care for referral to Ortho or MRI as indicated. He was instructed to return to the emergency department for any loss of bowel or bladder or for any concerns he verbalized understanding to all instruction. - Vital Signs Vital signs: Temp Pulse Resp BP Pulse Ox 97.9 F 84 20 125/81 96 12/20/19 12:51 12/20/19 12:51 12/20/19 12:51 12/20/19 12:51 12/20/19 12:51 - Diagnostic Test Radiology reviewed: Image reviewed, Reports reviewed Discharge - Discharge Clinical Impression: Low back pain Qualifiers: Chronicity: acute Back pain laterality: midline Sciatica presence: unspecified whether sciatica present Qualified Code(s): M54.5 - Low back pain Condition: Stable Disposition: HOME, SELF-CARE Instructions: Ice Packs ([facility]), Low Back Pain ([facility]), Muscle Relaxers ([facility]) Additional Instructions: *You have been evaluated for low back pain *Take medication as prescribed *Rest/Ice packs to your back 20 minutes on 20 minutes off *Follow up with a primary care provider within 5 days for recheck *Return to ED for worsening condition, changes, needs, increasing pain, fever, difficulty voiding or having a bowel movement. Prescriptions: Lidocaine [Lidoderm 5% (700 mg) Transdermal Patch] 1 patch TP DAILY #30 adh..patch Methocarbamol [Robaxin 500 Mg Tablet] 500 mg PO QID #40 tablet Forms: Elevated Blood Pressure Referrals: SELINA STEINER MD [Primary Care Provider] - Follow up in 3-5 days
--- NOTE | 2019-12-20 13:36 | RADIOLOGY REPORT (SQ) ---
EXAM DESCRIPTION: L SPINE WHOLE COMPLETED DATE/TIME: 12/20/2019 1:17 pm REASON FOR STUDY: pain, recent injury COMPARISON: None. NUMBER OF VIEWS: Five views including obliques. TECHNIQUE: AP, lateral, oblique, and sacral radiographic images acquired of the lumbar spine. LIMITATIONS: None. FINDINGS: MINERALIZATION: Normal. SEGMENTATION: Normal. No transitional anatomy. ALIGNMENT: Reversal of the normal lumbar lordosis. VERTEBRAE: Maintained height. No fracture or worrisome bone lesion. DISCS: Disc space narrowing at L4-L5. Very mild retrolisthesis of L4 on L5. POSTERIOR ELEMENTS: Pedicles and facets are intact. No pars defect or posterior arch defects. HARDWARE: None in the spine. PARASPINAL SOFT TISSUES: Normal. PELVIS: Intact as visualized. No fractures or worrisome bone lesions. SI joints intact. OTHER: No other significant finding. IMPRESSION: Degenerative changes most marked at L4-L5. Loss of the normal lumbar lordosis. TECHNICAL DOCUMENTATION: JOB ID: [id number] 2010 [employer]- All Rights Reserved Reading location - IP/workstation name: [email or web address]
== END 2019-12-20 14:00 | disposition home or self-care (01) ==
LOC: ER 12:01
DX: M54.5 Low back pain (principal); I10 Essential (primary) hypertension; Z86.711 Personal history of pulmonary embolism
CPT/HCPCS: 99283; 72110; J3490